=== PATIENT | male | born 1935 | race Caucasian/White ===

== ENCOUNTER → 2017-10-30 | Outpatient (CLI) | payer BC, MEDICARE | END | disposition home or self-care (01) | LOC: RAH 07:21 | PROVIDERS: ATTEND Urology | DX: N28.89 Other specified disorders of kidney and ureter (principal); K57.90 Diverticulosis of intestine, part unspecified, without perforation or abscess without bleeding; I70.90 Unspecified atherosclerosis | CPT/HCPCS: 74150 ==

== ENCOUNTER → 2018-12-22 | Outpatient (CLI) | payer BC, MEDICARE | END | disposition home or self-care (01) | LOC: RAH 09:18 | PROVIDERS: ATTEND Urology | DX: N28.89 Other specified disorders of kidney and ureter (principal); K40.90 Unilateral inguinal hernia, without obstruction or gangrene, not specified as recurrent; I70.0 Atherosclerosis of aorta | CPT/HCPCS: 74176 ==

== ENCOUNTER → 2019-07-08 | Outpatient (CLI) | payer BC, MEDICARE | END | disposition home or self-care (01) | LOC: RAH 10:36 | PROVIDERS: ATTEND Urology | DX: N28.89 Other specified disorders of kidney and ureter (principal); N18.9 Chronic kidney disease, unspecified | CPT/HCPCS: 76770 ==